=== PATIENT | female | born 1990 | race Caucasian/White ===

== ENCOUNTER 2017-03-21 11:16 | Emergency (ER) | payer OTHER ==
[~2017-03-21] VITALS: Ht 152.4 cm; Wt 68.6 kg
[~2017-03-21 11:16] MED LIST: PRENTAB55 PO; TYLE650T30 PO; phenergan PO
[2017-03-21] MEDS ORDERED: KETOROLAC 60 MG/2 ML VIAL (J1885) IM ONE (12:45)
[2017-03-21] MEDS ORDERED: NAPR500T3 PO (13:33)
[2017-03-21] MEDS ORDERED: TYLE325T5 PO (13:34)
[2017-03-21 13:53] VITALS: BP 114/80
[2017-03-21] MEDS ORDERED: CYCL5TAB PO (14:03)
[2017-03-21] MEDS ORDERED: CYCLOBENZAPRINE 10 MG TAB PO ONE (14:15)
--- NOTE | 2017-03-24 09:35 | REP ---
PA CHEST AND RIGHT RIBS: 03/21/2017. Clinical history: Right rib pain. Findings: PA chest: No prior study. The lungs are well inflated without infiltrate, effusion, atelectasis or mass. Heart, mediastinal and hilar contours normal. Airway intact. The bony thorax shows clavicles, scapula, humeral heads and visualized ribs grossly intact. Spine without acute finding. No free air. Right ribs: Four views of the ribs show posterior rib articulations and the thoracic vertebral bodies intact. Visualized clavicles, scapula and humerus were unremarkable. There is no visible or displaced rib fracture, focal rib lesion, pleural effusion or pneumothorax. Impression: 1. Negative PA chest and right rib series. No visible or displaced rib fracture, pleural effusion or pneumothorax. Signed by Juan Antonio Epperson MD 03/24/2017 10:28 A
== END 2017-03-21 14:12 | disposition home or self-care (01) ==
LOC: M ED 11:16
DX: M94.0 Chondrocostal junction syndrome [Tietze] (principal)
CPT/HCPCS: 71101; 96372; 99282; J1885